=== PATIENT | male | born 1995 | race Caucasian/White ===

== ENCOUNTER 2017-10-08 19:15 | Emergency (ER) | payer SELFPAY ==
[~2017-10-08] VITALS: Ht 172.7 cm; Wt 58.2 kg
[2017-10-08 19:25] VITALS: TEMP 98.3
[2017-10-08] MEDS ORDERED: FLEXERIL5 MG PO (20:34)
[2017-10-08 20:51] VITALS: BP 98/55; PULSE 81
== END 2017-10-08 20:51 | disposition home or self-care (01) ==
LOC: COL.ER 19:15
DX: S16.1XXA Strain of muscle, fascia and tendon at neck level, initial encounter (principal); F17.210 Nicotine dependence, cigarettes, uncomplicated; V43.52XA Car driver injured in collision with other type car in traffic accident, initial encounter; Y92.488 Other paved roadways as the place of occurrence of the external cause